=== PATIENT | female | born 1990 | race American Indian/Alaskan Native ===

== ENCOUNTER 2016-12-23 19:28 | Emergency (ER) | payer OTHER ==
[2016-12-23] MEDS ORDERED: FLEXERIL PO ONE (22:07)
[2016-12-23] MEDS ORDERED: TORADOL IM ONE (22:07)
--- NOTE | 2016-12-23 22:23 | Emergency Department Report ---
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 Patient states she was at a bar working earlier tonight when she was squatting and putting away some items when she started to feel some crampy, aching type pain on both her anterior thighs. Patient states earlier during the weekend she was playing kickball. Patient states pain is localized to her anterior thighs and hurts when she bends and squats. She denies any other injury, fever, chills, calf pain, chest pain, shortness of breath, abdominal pain or any other problems ED Past Medical Hx - Past Medical History Previous Medical History?: Yes Additional medical history: Obesity - Surgical History Past Surgical History?: No - Social History Smoking Status: Never Smoker Substance Use Type: None - Medications Home Medications: Home Medications Medication Instructions Recorded Confirmed Last Taken Type Ibuprofen [Motrin] 800 mg PO Q8H #20 tablet 08/19/14 Unknown Rx traMADol [Ultram 50 MG tab] 50 mg PO Q6HR PRN #14 tablet 08/19/14 Unknown Rx Nitrofurantoin [place]/M-Cryst 100 mg PO Q12HR #14 capsule 01/25/15 Unknown Rx [Macrobid CAP] Phenazopyridine [Pyridium] 200 mg PO TID #9 tab 01/25/15 Unknown Rx Cyclobenzaprine [Flexeril 10 MG 10 mg PO TID PRN #20 tablet 12/23/16 Unknown Rx TAB] Ibuprofen [Motrin] 800 mg PO Q8HR PRN #30 tablet 12/23/16 Unknown Rx ED Review of Systems ROS: Stated complaint: PULLED MUSCLE IN BOTH LEGS Other details as noted in HPI Constitutional: denies: chills, fever Eyes: denies: eye pain, eye discharge, vision change ENT: denies: ear pain, throat pain, epistaxis, congestion Respiratory: denies: cough, shortness of breath, wheezing Cardiovascular: denies: chest pain, palpitations Endocrine: no symptoms reported Gastrointestinal: denies: abdominal pain, nausea, diarrhea Genitourinary: denies: urgency, dysuria, discharge Musculoskeletal: myalgia. denies: back pain, joint swelling, arthralgia Skin: denies: rash, lesions, pruritus Neurological: denies: headache, weakness, paresthesias, confusion Psychiatric: denies: anxiety, depression Hematological/Lymphatic: denies: easy bleeding, easy bruising Physical Exam - Physical Exam Vital Signs: Vital Signs 12/23/16 20:31 Temperature 98.4 F Pulse Rate 82 Respiratory 20 Rate Blood Pressure 147/104 [Right] O2 Sat by Pulse 99 Oximetry Physical Exam: GENERAL: Alert and oriented x3, no apparent distress, Normal Gait, atraumatic. HEAD: Head is normocephalic and a-traumatic. NECK: Supple. Non edematous, No lymphadenopathy or thyromegaly. No C-spine tenderness LUNGS: Symetrical with respiration, No wheezing, no rales or crackles, CTAB. HEART: S1, S2 present, regular rate and rhythm without murmur, no rubs, no gallops. Non tender to palpation EXTREMITIES/MUSCULOSKELETAL: No cyanosis, clubbing, rash, lesions or edema. Full ROM bilaterally with upper and lower extremities. UE/LE Pulses 2+ bilaterally. LE and UE 5+ strength bilaterally, all joints are intact, mild tenderness to palpation of the anterior thighs, no calf tenderness bilaterally, no injuries seen to ecchymosis no swelling NEUROLOGIC: The patient is cooperative with no focal neurologic deficits. Cranial nerves II through XII are grossly intact. Normal speech. SKIN: Warm and dry, No lesions, No ulceration or induration present. ED Course Vital Signs 12/23/16 20:31 Temperature 98.4 F Pulse Rate 82 Respiratory 20 Rate Blood Pressure 147/104 [Right] O2 Sat by Pulse 99 Oximetry ED Medical Decision Making - Medical Decision Making 26-year-old female presents with muscle strain of the thighs ED course: Patient received Toradol and Flexeril in ed. Discussed with patient to take medication as prescribed. Discussed Flexeril is drowsy and not to take Flexeril and appropriate machinery Discussed heat therapy and soak in Epsom salts. Discussed appropriate rest of thighs Vital signs are normal blood pressure reduced prior to the ED discharge Patient reports feeling markedly better. Discussed the follow-up primary care physician. Critical care attestation.: If time is entered above; I have spent that time in minutes in the direct care of this critically ill patient, excluding procedure time. ED Disposition Clinical Impression: Myalgia, Muscle spasm Disposition: TO HOME OR SELFCARE Is pt being admited?: No Does the pt Need Aspirin: No Condition: Stable Instructions: Trigger Point Pain (ED), Musculoskeletal Pain (ED), Heat Pack Application (ED) Prescriptions: Cyclobenzaprine [Flexeril 10 MG TAB] 10 mg PO TID PRN #20 tablet PRN Reason: Muscle Spasm Ibuprofen [Motrin] 800 mg PO Q8HR PRN #30 tablet PRN Reason: Pain Referrals: [facility] [Outside] - 3-5 Days [facility] [Outside] - 3-5 Days [facility] [Outside] - 3-5 Days [facility] [Outside] - 3-5 Days Forms: Work/School Release Form(ED) Time of Disposition: 22:35
[2016-12-23 23:06] VITALS: BP 122/84
== END 2016-12-23 23:12 | disposition home or self-care (01) ==
LOC: ED 19:28
DX: M62.838 Other muscle spasm (principal)
CPT/HCPCS: 96372; 99282; J1885